=== PATIENT | male | born 1960 | race Caucasian/White ===

== ENCOUNTER 2016-10-31 21:50 | Emergency (ER) | payer OTHER, SELFPAY ==
[~2016-10-31 21:50] MED LIST: Sodium Chloride 0.9% 1,000 ML BAG ONE
[2016-10-31] MEDS ORDERED: Ketorolac Tromethamine 30 MG/ML VIAL ONE (22:15)
[2016-10-31] MEDS ORDERED: Ondansetron HCl/PF 4 MG/2 ML Vial ONE (22:15)
[2016-10-31 22:26] LABS: #Basophils 0.2 thou/uL (0.0-0.2); #Eosinphils 0.2 thou/uL (0.0-0.7); #Lymphocytes 2.1 thou/uL (1.20-3.40); #Monocytes 0.7 thou/uL (0.11-0.59); #Neutrophils 7.7 thou/uL (1.40-6.50); %Basophils 1.7 % (0.0-1.0); %Eosinophils 1.4 % (0.0-10.0); %Lymphocytes 19.4 % (21.0-51.0); %Monocytes 6.1 % (0.0-10.0); %Neutrophils 71.4 % (42.0-75.0); Hemoglobin 16.1 g/dL (14.0-18.0); Mean Corpuscular HGB CONC 33.2 g/dL (32.0-36.0); Mean Corpuscular Hemoglobin 28.9 pg (27.0-31.0); Mean Corpuscular Volume 87.2 fl (80.0-94.0); Mean Platelet Volume 7.7 fL (7.4-10.4); Platelet Count 345 thou/uL (130-400); RBC Distribution Width 12.9 % (11.5-14.5); Red Blood Cell (RBC) Count 5.57 mill/uL (4.70-6.10); White Blood Cell (WBC) Count 10.8 thou/uL (4.8-10.8)
[2016-10-31 22:42] LABS: ALT (SGPT) 25 U/L (8-55); AST (SGOT) 21 U/L (5-34); Albumin 4.1 g/dL (3.5-5.0); Alkaline Phosphatase 84 U/L (40-150); Anion Gap 17 mmol/L (10-20); BUN (Urea Nitrogen) 11 mg/dL (8.4-25.7); Bilirubin, Total 0.4 mg/dL (0.2-1.2); Calc. Creatinine Clearance 0 mL/min (70-130); Calcium 9.8 mg/dL (7.8-10.44); Carbon Dioxide 22 mmol/L (22-29); Chloride 107 mmol/L (98-107); Estimated GFR-MDRD 66; Globulin 3.2 g/dL (2.4-3.5); Glucose 113 mg/dL (70-105); Potassium 3.8 mmol/L (3.5-5.1); Protein, Total 7.3 g/dL (6.0-8.3); Sodium 142 mmol/L (136-145)
--- NOTE | 2016-10-31 23:35 | CT ---
ABDOMEN AND PELVIC CT NONCONTRAST 10/31/16 No prior comparison. CLINICAL HISTORY: Left flank pain. FINDINGS: There is a punctate bladder calculus to the left of midline just distal to the left UVJ approximatel y 2 mm in size with associated mild prominence of the left urinary collection system. There is also punctate left nephrolithiasis. No right urinary tract calculi are seen. There is limited evaluation of bowel, lymph nodes, vasculature and solid abdominal viscera by noncontrast technique. Bibasilar a telectasis is seen. There is no free air. Bilateral fat containing inguinal hernias are present. The re is prostate calcification. Colonic diverticulosis is seen. There is osseous degenerative changes. IMPRESSION: Recently passed left ureteral calculus, residing within the urinary bladder with mild residual dilat ation left urinary collection systems. Punctate left nephrolithiasis. POS: [facility]
== END 2016-11-01 00:24 | disposition home or self-care (01) ==
LOC: MADERS 21:50
DX: N20.1 Calculus of ureter (principal); F17.220 Nicotine dependence, chewing tobacco, uncomplicated
CPT/HCPCS: 74176; 80053; 85025; 96361; 96374; 96375; J1885; J2405; J7050

== ENCOUNTER 2016-12-17 11:50 | Emergency (ER) | payer OTHER ==
[2016-12-17] MEDS ORDERED: Ketorolac Tromethamine 30 MG/ML VIAL ONE (12:04)
[2016-12-17 12:23] LABS: #Basophils 0.2 thou/uL (0.0-0.2); #Eosinphils 0.2 thou/uL (0.0-0.7); #Lymphocytes 2.2 thou/uL (1.20-3.40); #Monocytes 0.7 thou/uL (0.11-0.59); #Neutrophils 8.1 thou/uL (1.40-6.50); %Basophils 1.4 % (0.0-1.0); %Eosinophils 1.4 % (0.0-10.0); %Lymphocytes 19.3 % (21.0-51.0); %Monocytes 6.1 % (0.0-10.0); %Neutrophils 71.7 % (42.0-75.0); Hemoglobin 16.9 g/dL (14.0-18.0); Mean Corpuscular HGB CONC 33.1 g/dL (32.0-36.0); Mean Corpuscular Hemoglobin 29.2 pg (27.0-31.0); Mean Corpuscular Volume 88.2 fl (80.0-94.0); Mean Platelet Volume 7.3 fL (7.4-10.4); Platelet Count 397 thou/uL (130-400); RBC Distribution Width 12.8 % (11.5-14.5); Red Blood Cell (RBC) Count 5.78 mill/uL (4.70-6.10); White Blood Cell (WBC) Count 11.3 thou/uL (4.8-10.8)
[2016-12-17 12:31] LABS: ALT (SGPT) 22 U/L (8-55); AST (SGOT) 18 U/L (5-34); Albumin 4.4 g/dL (3.5-5.0); Alkaline Phosphatase 94 U/L (40-150); Anion Gap 16 mmol/L (10-20); BUN (Urea Nitrogen) 9 mg/dL (8.4-25.7); Calc. Creatinine Clearance 0 mL/min (70-130); Calcium 9.7 mg/dL (7.8-10.44); Carbon Dioxide 27 mmol/L (22-29); Chloride 103 mmol/L (98-107); Estimated GFR-MDRD Greater than 90; Globulin 3.2 g/dL (2.4-3.5); Glucose 91 mg/dL (70-105); Potassium 3.9 mmol/L (3.5-5.1); Protein, Total 7.6 g/dL (6.0-8.3); Sodium 142 mmol/L (136-145)
[2016-12-17 12:32] LABS: CKMB 1.8 ng/mL (0-6.6); Troponin I Less than 0.010 ng/mL (< 0.028)
[2016-12-17 12:37] LABS: Bilirubin, Total 0.6 mg/dL (0.2-1.2)
--- NOTE | 2016-12-17 12:49 | RAD ---
TWO VIEW CHEST: History: Chest pain. Comparison: 10-21-13 FINDINGS: Lung swift appear clear of infiltrate. Heart size is upper normal but stable. Calcified hilar lymph nodes. Vascular markings normal. Osseous structures are unremarkable. IMPRESSION: No evidence of interval change. POS: [facility]
[2016-12-17] MEDS ORDERED: HYDROcodone/Acetaminophen 10/325 mg Tablet ONE (12:59)
== END 2016-12-17 13:10 | disposition home or self-care (01) ==
LOC: MADERS 11:50
DX: R07.89 Other chest pain (principal); F17.220 Nicotine dependence, chewing tobacco, uncomplicated
CPT/HCPCS: 71020; 80053; 82553; 84484; 85025; 85379; 93005; 96374; J1885

== ENCOUNTER 2020-11-16 14:20 | Outpatient (CLI) | payer OTHER ==
[2020-11-16 14:44] LABS: #Basophils 0.2 thou/uL (0.0-0.2); #Eosinphils 0.1 thou/uL (0.0-0.7); #Lymphocytes 2.5 thou/uL (1.20-3.40); #Monocytes 0.7 thou/uL (0.11-0.59); %Basophils 1.7 % (0.0-1.0); %Lymphocytes 21.8 % (21.0-51.0); %Monocytes 5.7 % (0.0-10.0); %Neutrophils 69.8 % (42.0-75.0); Hemoglobin 16.9 g/dL (14.0-18.0); Mean Corpuscular HGB CONC 32.4 g/dL (32.0-36.0); Mean Corpuscular Hemoglobin 29.1 pg (27.0-31.0); Mean Platelet Volume 7.3 fL (7.4-10.4); Platelet Count 360 thou/uL (130-400); RBC Distribution Width 12.6 % (11.5-14.5); White Blood Cell (WBC) Count 11.4 thou/uL (4.8-10.8)
[2020-11-16 14:58] LABS: ALT (SGPT) 31 U/L (8-55); AST (SGOT) 24 U/L (5-34); Albumin 4.5 g/dL (3.5-5.0); Alkaline Phosphatase 85 U/L (40-110); Anion Gap 17 mmol/L (10-20); BUN (Urea Nitrogen) 11 mg/dL (8.4-25.7); Bilirubin, Total 0.6 mg/dL (0.2-1.2); Calc. Creatinine Clearance 0 mL/min (70-130); Calcium 10.2 mg/dL (7.8-10.44); Carbon Dioxide 27 mmol/L (22-29); Cardiac Risk 5.2 (Less than 4.5); Chloride 103 mmol/L (98-107); Cholesterol 166 mg/dl (< 200 Desired); Globulin 3.3 g/dL (2.4-3.5); Glucose 93 mg/dL (70-105); HDL Cholesterol 32 mg/dL (>60 Neg Risk); LDL Cholesterol, Calculated 94 mg/dL; Potassium 4.1 mmol/L (3.5-5.1); Protein, Total 7.8 g/dL (6.0-8.3); Sodium 143 mmol/L (136-145); Triglycerides 199 mg/dL (Less than 150)
[2020-11-16 21:40] LABS: Hemoglobin A1c 5.2 % (4.0-6.0)
== END 2020-11-16 14:21 | disposition home or self-care (01) ==
LOC: MADLAB 14:20
PROVIDERS: ATTEND Family Medicine
DX: R55 Syncope and collapse (principal); I10 Essential (primary) hypertension
CPT/HCPCS: 36415; 71046; 80050; 80061; 83036